=== PATIENT | female | born 1980 ===

== ENCOUNTER → 2016-11-07 | Outpatient (CLI) | payer OTHER ==
[~2016-11-07] MED LIST: ADVIL200 MG PO; FERGON325 M1 PO; FERROUS GLUCON324 MG; JUNEL 1.5 MG-31 EACH PO; NORCO 5-325 MG1 TAB PO; OSCAL + D500 MG PO; PREVACID15 MG PO; ROCALTROL0.25 MCG PO
== END | disposition disaster alternative care site (69) ==
LOC: LFPA 10:55
DX: C73 Malignant neoplasm of thyroid gland (principal)